=== PATIENT | female | born 1940 | race Caucasian/White ===

== ENCOUNTER → 2016-10-24 | Outpatient (CLI) | payer MEDICARE ==
[~2016-10-24] MED LIST: ASPIRIN81 M1; ATENOLOL50 MG PO; B12-METHYL1000 MCG; CIPRO500 MG PO; FISH OIL; FISH OIL 10001000 MG PO; FUROSEMIDE20 MG; HYDROCODONE BIT1 T11 PO; LEVOTHYROXIN0.112 MG; LOVASTATIN20 MG; MULTIVITAMIN FO1 CAP; NORVASC5 MG PO; PERSERVISION; PERSERVISION AREDS; Rocaltrol0.25 MCG; TRICOR145 MG; VITAMIN D1000 IU PO
== END | disposition home or self-care (01) ==
LOC: MAMMO 11:09
DX: Z12.31 Encounter for screening mammogram for malignant neoplasm of breast (principal)

== ENCOUNTER → 2016-11-26 | Outpatient (CLI) | payer MEDICARE | END | disposition home or self-care (01) | LOC: US 11:00 | DX: I65.23 Occlusion and stenosis of bilateral carotid arteries (principal) ==

== ENCOUNTER → 2017-01-15 | Outpatient (CLI) | payer MEDICARE | END | disposition home or self-care (01) | LOC: CARD 12:19 | DX: R07.89 Other chest pain (principal) ==

== ENCOUNTER → 2017-01-29 | Outpatient (CLI) | payer MEDICARE ==
[~2017-01-29] MED LIST changes: +CALCIUM 600 +1 EA10 PO; -LEVOTHYROXIN0.112 MG; +LEVOXYL100 MCG PO; +NORVASC10 MG PO; -NORVASC5 MG PO; -VITAMIN D1000 IU PO; +VITAMIN D5000 UNI1 PO
--- NOTE | ~2017-01-29 | ST ---
[place], [place] EXERCISE STRESS TEST REPORT NAME: LEXII CHRISTENSEN UNIT #: [id number] ROOM: DOCTOR: ZE ANDREWS [facility] BIRTHDATE: [birth year] DOS: LEXISCAN WITH CARDIOLITE The patient received Lexiscan 0.4 mg over 10 seconds. Heart rate is 87, no ischemic changes on EKG. No complications noted. Isotope was injected. Myocardial perfusion scan to follow. VI KUNZ MD CM:STRESS:EXERCISE STRESS TEST REPORT [id number] VI KUNZ MD [facility]
--- NOTE | 2017-01-29 12:30 | NUR ---
INFORMED CONSENT OBTAINED FOR LEXISCAN NUCLEAR STRESS TEST WITH DR. KUNZ. RESTING EKG PACED WITH A RESTING HR OF 67 WITH BP OF 128/72. LUNGS CLEAR WITH SPO2 OF 99% ON ROOM AIR. PT COMPLETED A 1:00 LEXISCAN PROTOCOL RECEIVING LEXISCAN 0.4 MG IV OVER 10 SECONDS. HAD NO CHEST PAIN OR ANY EKG CHANGES. EKG NSR WITH INCREASE IN HEART RATE. HAD A PEAK HR OF 92 WITH BP OF 128/62. LAST RECOVERY HR OF 86 WITH BP OF 136/70. AWAITING SCANNING IN STABLE CONDITION.
== END | disposition home or self-care (01) ==
LOC: CARD 00:35
DX: R07.89 Other chest pain (principal); R06.02 Shortness of breath; R53.81 Other malaise

== ENCOUNTER → 2017-10-01 | Outpatient (CLI) | payer MEDICARE | END | disposition home or self-care (01) | LOC: US 09:44 | DX: N28.1 Cyst of kidney, acquired (principal); N26.1 Atrophy of kidney (terminal); N18.4 Chronic kidney disease, stage 4 (severe) ==

== ENCOUNTER 2019-02-03 13:24 | Emergency (ER) | payer MEDICARE ==
[~2019-02-03] VITALS: Ht 170.1 cm; Wt 81.2 kg
--- NOTE | ~2019-02-03 | EKG ---
[place], [place] ELECTROCARDIOGRAM REPORT NAME: LEXII CHRISTENSEN UNIT #: [id number] ROOM: DOCTOR: EPIPHANY DRAFT REPORT BIRTHDATE: [birth year] [facility] Test Date: 2019-02-03 Test Time: 14:42:49 Pat Name: LEXII CHRISTENSEN Department: Room: Gender: F Instrument Setter: : 1940 Requested By: LUCIA ESQUEDA Order Number: [id number] Reading MD: Renzo Martell MD Measurements Intervals [place] Rate: 63 P: NH: 231 QRS: 5 QRSD: 90 T: -3 QT: 361 QTc: 370 Interpretive Statements Atrial-paced complexes Prolonged NH interval Abnormal R-wave progression, early transition Borderline T abnormalities, diffuse leads No previous ECG available for comparison Electronically Signed On 02-04-2019 15:47:42 PDT by Renzo Martell MD CM:EKGRPT:ELECTROCARDIOGRAM REPORT [id number] LUCIA REYNOSO DRAFT REPORT LUCIA BRINK
[2019-02-03 13:25] VITALS: BP 152/66
[2019-02-03 14:50] LABS: BASO % 0.3 % (0.0-1.0); EOS # 0.1 10*3/uL (0.0-0.4); EOS % 1.4 % (1.0-4.0); HEMOGLOBIN 11.9 g/dl (12.0-16.0); LYMPH # 1.5 10*3/uL (1.3-4.4); LYMPH % 16.8 % (27.0-41.0); MEAN CELL VOLUME 102.9 fl (81.0-99.0); MEAN CORPUSCULAR HGB CONC 33.1 g/dl (33.0-37.0); MEAN PLATELET VOLUME 10.1 fl (9.6-12.3); MONO % 11.3 % (3.0-9.0); NEUT # 6.3 10*3/uL (2.3-7.9); NEUT % 69.8 % (47.0-73.0); PLATELET COUNT AUTOMATED 207 10*3/uL (130-400); RED CELL DISTRI WIDTH 14.1 % (0-14.5); WHITE BLOOD COUNT 9.1 10*3/uL (4.8-10.8)
[2019-02-03 15:05] LABS: ALBUMIN 2.9 gm/dl (3.1-4.5); ALKALINE PHOSPHATASE 85 U/L (45-117); BUN 48 mg/dl (7-24); CHLORIDE 118 mmol/L (98-107); CPK 80 U/L (26-192); CREATININE 1.97 mg/dL (0.55-1.02); LIPASE 224 U/L (73-393); POTASSIUM 4.7 mmol/L (3.5-5.1); SGOT/AST 24 IU/L (3-35); SGPT/ALT 21 U/L (12-78); SODIUM 145 mmol/L (136-145); TOTAL PROTEIN 6.9 gm/dL (6.4-8.2)
[2019-02-03 15:10] LABS: ACT PARTIAL THROMBO TIME 24.3 SECONDS (20.0-32.1)
[2019-02-03 15:10] LABS: TROPONIN I < 0.015 ng/ml (<0.045)
[2019-02-03 16:17] LABS: BILIRUBIN NEGATIVE (NEGATIVE); BLOOD TRACE-INTACT (NEGATIVE); CLARITY SL CLOUDY (CLEAR); COLOR YELLOW (YELLOW); GLUCOSE NEGATIVE (NEGATIVE); KETONE NEGATIVE (NEGATIVE); LEUKO ESTERASE 2+ (NEGATIVE); NITRITE POSITIVE (NEGATIVE); PH 5.5 (5.0-9.0); SPECIFIC GRAVITY 1.015 (1.005-1.030); UROBILINOGEN 0.2 E.U./dl (0.2-1.0)
[2019-02-03 17:06] LABS: BACTERIA TRACE; EPITHELIAL CELLS 0-2
[2019-02-03] MEDS ORDERED: MACROBID100 M1 PO (17:37)
== END 2019-02-03 18:03 | disposition home or self-care (01) ==
LOC: ED 13:24
PROVIDERS: Physician Assistant
DX: S50.02XA Contusion of left elbow, initial encounter (principal); S00.83XA Contusion of other part of head, initial encounter; S00.12XA Contusion of left eyelid and periocular area, initial encounter; N39.0 Urinary tract infection, site not specified; I10 Essential (primary) hypertension; E11.9 Type 2 diabetes mellitus without complications; E78.00 Pure hypercholesterolemia, unspecified; M19.90 Unspecified osteoarthritis, unspecified site; Z86.718 Personal history of other venous thrombosis and embolism; Z87.442 Personal history of urinary calculi; Z88.2 Allergy status to sulfonamides; Z91.040 Latex allergy status; Z79.899 Other long term (current) drug therapy; Z79.82 Long term (current) use of aspirin; W01.0XXA Fall on same level from slipping, tripping and stumbling without subsequent striking against object, initial encounter; Y93.89 Activity, other specified; Y92.89 Other specified places as the place of occurrence of the external cause; Y99.8 Other external cause status

== ENCOUNTER 2019-03-19 14:56 | Inpatient (IN) | payer MEDICARE ==
[~2019-03-19] VITALS: Ht 170.2 cm; Wt 79.9 kg
--- NOTE | 2019-03-19 | NUR ---
PATIENT RESTING WITH EYES CLOSED. RESPIRATION EASY AND UNLABORED. BED ALARM ON AND CALL LIGHT WITHIN REACH. WILL MONITOR.
[~2019-03-19 14:56] MED LIST changes: -LOVASTATIN20 MG; +LOVASTATIN20 MG PO; +MACROBID100 M1 PO
[2019-03-19 15:33] LABS: BASO % 0.3 % (0.0-1.0); EOS # 0.1 10*3/uL (0.0-0.4); EOS % 1.6 % (1.0-4.0); HEMATOCRIT 34.2 % (37.0-47.0); HEMOGLOBIN 10.9 g/dl (12.0-16.0); LYMPH # 1.5 10*3/uL (1.3-4.4); LYMPH % 21.7 % (27.0-41.0); MEAN CELL VOLUME 104.6 fl (81.0-99.0); MEAN CORPUSCULAR HGB 33.3 pg (27.0-31.0); MEAN CORPUSCULAR HGB CONC 31.9 g/dl (33.0-37.0); MEAN PLATELET VOLUME 10.8 fl (9.6-12.3); MONO # 0.9 10*3/uL (0.1-1.0); MONO % 12.6 % (3.0-9.0); NEUT # 4.4 10*3/uL (2.3-7.9); NEUT % 63.4 % (47.0-73.0); PLATELET COUNT AUTOMATED 186 10*3/uL (130-400); RED BLOOD COUNT 3.27 10*6/uL (4.10-5.10); RED CELL DISTRI WIDTH 14.3 % (0-14.5)
[2019-03-19 15:48] LABS: CREATININE 1.7 mg/dL (0.55-1.02); POTASSIUM 4.5 mmol/L (3.5-5.1); TOTAL PROTEIN 6.5 gm/dL (6.4-8.2)
[2019-03-19 15:55] LABS: BILIRUBIN NEGATIVE (NEGATIVE); BLOOD 1+ (NEGATIVE); CLARITY SL CLOUDY (CLEAR); COLOR YELLOW (YELLOW); GLUCOSE NEGATIVE (NEGATIVE); KETONE NEGATIVE (NEGATIVE); LEUKO ESTERASE 2+ (NEGATIVE); NITRITE NEGATIVE (NEGATIVE); PH 5.5 (5.0-9.0); UROBILINOGEN 0.2 E.U./dl (0.2-1.0)
[2019-03-19 16:03] LABS: BACTERIA 4+; MUCOUS TRACE; RBC 0-2 rbc/hpf (0-2)
[2019-03-19 16:30] VITALS: BP 170/70
[2019-03-19 17:26] VITALS: BP 172/76
[2019-03-19 17:30] VITALS: BP 147/38
--- NOTE | 2019-03-19 17:30 | NUR ---
A 78, admitted to , under the services of JUDY Sears DO with a diagnosis of UTI. Chief complaint is Change in mental status. Patient arrived via stretcher from ER. Monitor applied. Initial assessment completed. Vital signs taken and recorded. JUDY SEARS DO notified of admission to the unit. Orders received. See assessment for past medical history, medications and allergies. Patient and/or family oriented to unit. [address] visitation policy reviewed. Clothing/patient valuable form completed. PADMA HELMS
--- NOTE | 2019-03-19 18:31 | NUR ---
Called patients home pharmacy for updated med list but they were closed.
[2019-03-19 20:00] VITALS: BP 136/36; BP 136/62
--- NOTE | 2019-03-19 20:00 | NUR ---
PATIENT AWAKE AND ALERT TO SELF AND PLACE. PATIENT HAS NO COMPLAINTS AT THIS TIME. LARGE HEMATOMA NOTED ON RIGHT UPPER ARM. BED ALARM ON AND CALL LIGHT IN REACH. WILL MONITOR.
[2019-03-20] VITALS: BP 131/66
--- NOTE | 2019-03-20 02:00 | NUR ---
PATIENT RESTING WITH EYES CLOSED. RESPIRATIONS EASY AND UNLABORED. BED ALARM ON AND CALL LIGHT WITHIN REACH.
--- NOTE | 2019-03-20 04:00 | NUR ---
PATIENT RESTING WITH EYES CLOSED. RESPIRATIONS EASY AND UNLABORED. BED ALARM ON AND CALL LIGHT WITHIN REACH. WILL MONITOR.
--- NOTE | 2019-03-20 04:12 | NUR ---
24 HR chart check completed.
[2019-03-20 07:06] LABS: BASO % 0.4 % (0.0-1.0); EOS # 0.1 10*3/uL (0.0-0.4); EOS % 1.1 % (1.0-4.0); HEMATOCRIT 30.4 % (37.0-47.0); LYMPH # 1.8 10*3/uL (1.3-4.4); LYMPH % 19.8 % (27.0-41.0); MEAN CORPUSCULAR HGB 33.6 pg (27.0-31.0); MEAN CORPUSCULAR HGB CONC 32.9 g/dl (33.0-37.0); MEAN PLATELET VOLUME 11.6 fl (9.6-12.3); MONO % 11.5 % (3.0-9.0); NEUT % 66.8 % (47.0-73.0); PLATELET COUNT AUTOMATED 174 10*3/uL (130-400); RED BLOOD COUNT 2.98 10*6/uL (4.10-5.10); RED CELL DISTRI WIDTH 14.3 % (0-14.5)
[2019-03-20 07:14] LABS: ALBUMIN 2.6 gm/dl (3.1-4.5); CREATININE 1.5 mg/dL (0.55-1.02); PHOSPHOROUS 2.9 mg/dL (2.5-4.9); POTASSIUM 4.2 mmol/L (3.5-5.1); TOTAL PROTEIN 5.5 gm/dL (6.4-8.2)
[2019-03-20 07:20] LABS: THYROID STIM HORMONE (HS) 1.06 uIU/ml (0.358-4.75)
[2019-03-20 08:00] VITALS: BP 157/58
--- NOTE | 2019-03-20 10:23 | NUR ---
Patients home pharmacy, [facility] is closed on Sundays. Open until 1500 on Thursday.
--- NOTE | 2019-03-20 10:27 | NUR ---
Called Maya in [facility] pharmacy because patient hinted that she went there, but pharmacist stated that patient had all prescriptions transferred to [facility].
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
[2019-03-20 12:00] VITALS: BP 131/56
[2019-03-20] MEDS ORDERED: LEVOTHYROXINE125 MCG PO (12:30)
[2019-03-20] MEDS ORDERED: COREG25 MG PO (12:33)
[2019-03-20] MEDS ORDERED: IMDUR SA60 M1 PO (12:37)
[2019-03-20] MEDS ORDERED: MEMANTINE HCL10 MG PO (12:38)
--- NOTE | 2019-03-20 12:40 | NUR ---
MED REC UPDATED VIA HOME LIST.
[2019-03-20 16:00] VITALS: BP 144/65
--- NOTE | 2019-03-20 19:06 | NUR ---
Shift chart check completed.
[2019-03-20 20:00] VITALS: BP 124/50
--- NOTE | 2019-03-20 20:00 | NUR ---
PATIENT AWAKE AND ALERT TO SELF AND PLACE BUT NOT TO TIME. PATIENT HAS NO COMPLAINTS AT THIS TIME. BED ALARM ON AND CALL LIGHT IN REACH. WILL MONITOR.
[2019-03-21] VITALS: BP 145/55
--- NOTE | 2019-03-21 | NUR ---
PATIENT RESTING WITH EYES CLOSED. RESPIRATION EASY AND UNLABORED. BED ALARM ON AND CALL LIGHT IN REACH. WILL MONITOR.
--- NOTE | 2019-03-21 02:00 | NUR ---
PATIENT RESTING WITH EYES CLOSED. RESPIRATION EASY AND UNLABORED. BED ALARM ON AND CALL LIGHT IN REACH. WILL MONITOR.
--- NOTE | 2019-03-21 04:00 | NUR ---
PATIENT RESTING WITH EYES CLOSED. RESPIRATION EASY AND UNLABORED. BED ALARM ON AND CALL LIGHT IN REACH. WILL MONITOR.
[2019-03-21 06:32] LABS: BASO % 0.4 % (0.0-1.0); EOS # 0.2 10*3/uL (0.0-0.4); EOS % 2.4 % (1.0-4.0); HEMATOCRIT 30.9 % (37.0-47.0); LYMPH # 1.9 10*3/uL (1.3-4.4); LYMPH % 24.7 % (27.0-41.0); MEAN CELL VOLUME 102.3 fl (81.0-99.0); MEAN CORPUSCULAR HGB 33.1 pg (27.0-31.0); MEAN CORPUSCULAR HGB CONC 32.4 g/dl (33.0-37.0); MEAN PLATELET VOLUME 11.3 fl (9.6-12.3); MONO # 0.9 10*3/uL (0.1-1.0); MONO % 12.4 % (3.0-9.0); NEUT # 4.5 10*3/uL (2.3-7.9); NEUT % 59.6 % (47.0-73.0); PLATELET COUNT AUTOMATED 178 10*3/uL (130-400); RED BLOOD COUNT 3.02 10*6/uL (4.10-5.10); RED CELL DISTRI WIDTH 14.5 % (0-14.5); WHITE BLOOD COUNT 7.5 10*3/uL (4.8-10.8)
[2019-03-21 07:01] LABS: CREATININE 1.56 mg/dL (0.55-1.02); POTASSIUM 4.3 mmol/L (3.5-5.1)
--- NOTE | 2019-03-21 07:30 | NUR ---
VITALS STABLE. ALERT AND ORIENTED TO PERSON AND PLACE, NOT TO TIME. MEHDI. CAP REFILL < 3 SECONDS. SKIN TURGOR NON-TENTING. HEART SOUNDS NORMAL. TRACE EDEMA IN BILATERAL LOWER EXTREMETIES. RESPIRATIONS EASY AND NON-LABORED. PO2 99% ON R/A. LUNGS CLEAR THROUGHOUT. ABDOMEN SOFT, NON-TENDER, NON-DISTENDED. BOWEL SOUNDS X 4. SKIN WARM, DRY AND INTACT. PAINLESS HEMATOMA TO RIGHT UPPER EXTREMITY. LEFT ANTECUBITAL IV SITE INTACT- NO REDNESS OR SWELLING. PT PLEASANT AND COOPERATIVE. NO COMPLAINTS AT THIS TIME. WILL CONTINUE TO ASSESS. KASSANDRA ROSARIO [facility] [place].
[2019-03-21 08:00] VITALS: BP 138/78
--- NOTE | 2019-03-21 08:00 | NUR ---
PT AWAKE, ALERT, PLEASANT. SITTING UP IN CHAIR EATING BREAKFAST. LUNGS CLEAR T/O. NO EDEMA NOTED. DENIES ANY PAIN. CALL LIGHT WITHIN REACH AND BODY ALARM PRESENT TO CHAIR.
--- NOTE | 2019-03-21 09:55 | NUR ---
PT SITTING IN CHAIR LOOKING OUT WINDOW. RESPIRATIONS EASY AND NON-LABORED. CALL LIGHT IN REACH. NO COMPLAINTS AT THIS TIME. WILL CONTINUE TO ASSESS. KASSANDRA CARROLLCC
--- NOTE | 2019-03-21 10:40 | NUR ---
Occupational therapy orders received and OT evaluation and POC completed in full on floor five. Patient precautions include fall risk, ww use, minimal confusion, weakness, and R UE hematoma. Per OT eval, OT recommends SNF. If refused, home with SN, OT, and PT. Patient would benefit from continued OT treatment to maximize independence and safety with ADLs and functional mobility. Patient complexity is low, [id number]. Thank you for the referral. Irene Small, OTR/L
[2019-03-21 12:00] VITALS: BP 128/60
--- NOTE | 2019-03-21 12:05 | NUR ---
PHYSICAL THERAPY Mechelle completed moderate complexity level 57362 recomend SNF at discharge PT to work on transfers, abm with AD, strengthening, balance and safety. Full report to follow Sandra Ventura PT
--- NOTE | 2019-03-21 12:46 | NUR ---
PT AWAKE, ALERT AND ORIENTED. SITTING IN CHAIR EATING LUNCH. PT PLEASANT. RESPIRATIONS EASY AND NON-LABORED. NO COMPLAINTS AT THIS TIME. WILL CONTINUE TO ASSESS. KASSANDRA ROSARIO [facility].
--- NOTE | 2019-03-21 13:51 | NUR ---
Case Management was asked to wait to talk to the patient until her friend had the chance. BEAUTY CULTURE TEACHER went to speak with the patient, patient stated that her friend Guzman has not been in yet. BEAUTY CULTURE TEACHER confirmed this with SHAUNA Lerner. Will await til friend arrives to talk to the patient about SNF. Straightening Roll Operator Paula is aware. -JOSHUA Palmer
[2019-03-21 16:00] VITALS: BP 136/61
[2019-03-21 20:00] VITALS: BP 128/50
[2019-03-22] VITALS: BP 145/63
--- NOTE | 2019-03-22 | NUR ---
PATIENT RESTING WITH EYES CLOSED. RESPIRATIONS EASY AND UNLABORED. BED ALARM ON AND CALL LIGHT IN REACH.
--- NOTE | 2019-03-22 02:00 | NUR ---
PATIENT RESTING WITH EYES CLOSED. RESPIRATIONS EASY AND UNLABORED. BED ALARM ON AND CALL LIGHTIN REACH. WILL MONITOR.
--- NOTE | 2019-03-22 04:00 | NUR ---
PATIENT RESTING WITH EYES CLOSED. RESPIRATIONS EASY AND UNLABORED. BED ALARM ON AND CALL LIGHT IN REACH. WILL MONITOR.
[2019-03-22 06:45] LABS: BASO # 0.1 10*3/uL (0.0-0.1); BASO % 0.9 % (0.0-1.0); EOS # 0.2 10*3/uL (0.0-0.4); EOS % 3.2 % (1.0-4.0); HEMATOCRIT 30.9 % (37.0-47.0); LYMPH # 1.7 10*3/uL (1.3-4.4); LYMPH % 24.6 % (27.0-41.0); MEAN CELL VOLUME 102.3 fl (81.0-99.0); MEAN CORPUSCULAR HGB 33.1 pg (27.0-31.0); MEAN CORPUSCULAR HGB CONC 32.4 g/dl (33.0-37.0); MEAN PLATELET VOLUME 11.6 fl (9.6-12.3); MONO # 0.8 10*3/uL (0.1-1.0); MONO % 12.3 % (3.0-9.0); NEUT % 58.4 % (47.0-73.0); PLATELET COUNT AUTOMATED 177 10*3/uL (130-400); RED BLOOD COUNT 3.02 10*6/uL (4.10-5.10); RED CELL DISTRI WIDTH 14.4 % (0-14.5); WHITE BLOOD COUNT 6.8 10*3/uL (4.8-10.8)
[2019-03-22 06:55] LABS: CREATININE 1.52 mg/dL (0.55-1.02); POTASSIUM 4.4 mmol/L (3.5-5.1)
[2019-03-22 08:00] VITALS: BP 129/51
--- NOTE | 2019-03-22 09:00 | NUR ---
COMMUNITY ARTS WORKER SPOKE WITH BALTA PT FRIEND ABOUT DISCHARGE NEEDS. THEY ARE AGREEABLE TO HOME HEALTH. THEY ARE REQUESTING [facility]. WILL SEND REFERRAL.
--- NOTE | 2019-03-22 10:43 | NUR ---
JOSHUA spoke with the patients RADHA Hinds on the phone and in person this morning. Guzman stated that he has known the patient for approximately 27 years. He stated that the patient has no family. Himself, and sons are all that the patient has. He stated that he assist the patient with ADLs and IADLs. He does obtain groceries for the patient, however the patient does not cook. Guzman stated that he does provided 2-3 meals a day for the patient. Guzman stated in the past the he has tried to get meals on wheels for the patient but the patient would not let the people in her home to do an assessment. The patient has expressed to him in the past that she does not want to go to detention, even for rehab. The patient is agreeable to [facility]. The patient does have a life alert button that she carries with her at all times. Guzman stated the patient is not up to date on current events as she does not watch television or reads the news paper. The patient only reads books. Guzman stated that the patient does tend to be a loner as she has been since he as known her. Patient and POA are agreeable to [facility]. JOSHUA notified Eating Disorder Psychologist Paula. -JOSHUA Palmer
--- NOTE | 2019-03-22 10:50 | NUR ---
Founding Partner in to talk to patient. Patient states lives at HOME with ALONE. There are FEW steps in the home. Physician: SUZETTE Pharmacy: [facility] health services: NONE Patient's level of ADLs: MODERATE ASSIST Patient has working utilities: YES DME: NONE Follow-up physician's appointment after d/c: WILL BE MADE BY HOSPITALIST NURSE DIRECTOR ON DISCHARGE Does patient want to access PORTAL?: NO Discharge plan PT LIVES AT HOME ALONE WITH A FRIEND HELPING HER OUT. PER FRIEND BALTA HE OR SOMEONE IN HIS FAMILY LOOKING IN ON HER AT LEAST 2 TIMES A DAY. HE ALSO BRINGS HER MEALS 2 TIMES A DAY. PT WANTS TO RETURN HOME ON DISCHAGE. WILL TALK TO BALTA ABOUT NEEDS. WILL CONTINUE TO FOLLOW. WILL HAVE A RIDE HOME. . RICK DICKEY
--- NOTE | 2019-03-22 10:50 | NUR ---
OT NOTE Pt was seen this A.M. 1:1 for 16 minute OT session. Upon arrival pt was supine in bed. Pt identified by name and and had no complaints at this time. Pt reported that she felt "great." Pt transferred supine to sit EOB with SBA. While sitting EOB pt donned B socks with SBA. Sit to stand completed from bed level with CGA and use of w/w for UE support. Functional mobility was then completed to the bathroom with CGA for safety. There she transferred on/off standard commode with SBA and use of grab bar. Clothing management completed with SBA and toilet hygiene completed with supervision while seated. She then stood sink side while washing her hands with CGA for safety. Functional mobility was then completed back to the EOB where she transferred sit to supine with SBA. There she was left with call light in hand, tray table in place, and bed alarm activated for safety. Continue with rec D/C plan to SNF. NASIM Villanueva/Naveed
[2019-03-22 12:00] VITALS: BP 129/55
--- NOTE | 2019-03-22 13:04 | NUR ---
Discharge instructions reviewed with patient/family. Patient receptive and verbalizes understanding. Follow-up care arranged. Written instructions given to patient/family. [place] DISCONTINUED. PATIENT TAKEN OFF FLOOR VIA WHEELCHAIR; PICKED UP BY FRIEND NATHANIEL VARELA
--- NOTE | 2019-03-22 13:36 | NUR ---
PHYSICAL THERAPY Patien presented to therapy in supine with head of bed elevated and report of no pain or other complaints. Patient gives informed consent for treatment. Patient was identified by name and on wristband. Patient transferred supine to sitting at EOB transfer with SBA. Patien sit to stand from EOB with SBA. Patient performed ambulation with Wh Walker and CGA X 1 for 60' X 2 with no LOB or other difficulty. Patient transferred back to supine in bed with SBA. Patient was left in supine in bed head of bed elevated, call light within reach and bed alarm activated. Patient was 1:1 with this SPECIAL WARFARE BOAT OPERATOR for 15 minutes total. TOM DUBON SPECIAL WARFARE BOAT OPERATOR
--- NOTE | 2019-03-22 14:20 | NUR ---
REFERRAL SENT TO [facility].
--- NOTE | 2019-03-23 07:41 | NUR ---
PHYSICAL THERAPY CO-SIGN I approve of the Physical Therapy notes written above. Sandra Ventura PT
--- NOTE | 2019-03-23 15:27 | NUR ---
OCCUPATIONAL THERAPY CO-SIGN I approve of the Occupational Therapy notes written above. SALIMA ESTRADA OTR/Naveed
== END 2019-03-22 12:55 | disposition home or self-care (01) | DRG 640 ==
LOC: ED 14:56 → EDHOLD 16:59 → 5E 16:59
PROVIDERS: Emergency Medicine; Internal Medicine; Student in an Organized Health Care Education/Training Program; ADMIT Internal Medicine
DX: E86.0 Dehydration (principal); G93.41 Metabolic encephalopathy; E44.0 Moderate protein-calorie malnutrition; N18.4 Chronic kidney disease, stage 4 (severe); E87.8 Other disorders of electrolyte and fluid balance, not elsewhere classified; R73.9 Hyperglycemia, unspecified; I12.9 Hypertensive chronic kidney disease with stage 1 through stage 4 chronic kidney disease, or unspecified chronic kidney disease; E55.9 Vitamin D deficiency, unspecified; E66.3 Overweight; D53.9 Nutritional anemia, unspecified; M19.90 Unspecified osteoarthritis, unspecified site; R73.03 Prediabetes; E78.5 Hyperlipidemia, unspecified; E03.9 Hypothyroidism, unspecified; S40.021A Contusion of right upper arm, initial encounter; W01.0XXA Fall on same level from slipping, tripping and stumbling without subsequent striking against object, initial encounter; Y93.89 Activity, other specified; Y92.511 Restaurant or cafe as the place of occurrence of the external cause; Y99.8 Other external cause status; Z87.440 Personal history of urinary (tract) infections; Z88.2 Allergy status to sulfonamides; Z91.040 Latex allergy status; Z90.710 Acquired absence of both cervix and uterus; Z98.51 Tubal ligation status; Z98.42 Cataract extraction status, left eye; Z98.41 Cataract extraction status, right eye; Z82.49 Family history of ischemic heart disease and other diseases of the circulatory system; Z83.3 Family history of diabetes mellitus; Z86.718 Personal history of other venous thrombosis and embolism; Z87.891 Personal history of nicotine dependence; Z79.899 Other long term (current) drug therapy; Z79.82 Long term (current) use of aspirin; Z68.27 Body mass index [BMI] 27.0-27.9, adult

== ENCOUNTER → 2019-03-31 | Outpatient (CLI) | payer MEDICARE ==
[~2019-03-31] MED LIST changes: +COREG25 MG PO; +IMDUR SA60 M1 PO; +LEVOTHYROXINE125 MCG PO; +MEMANTINE HCL10 MG PO
== END | disposition home or self-care (01) ==
LOC: US 13:45
DX: I65.23 Occlusion and stenosis of bilateral carotid arteries (principal)

== ENCOUNTER → 2019-05-11 | Outpatient (CLI) | payer MEDICARE ==
[2019-05-11 12:02] LABS: ALBUMIN 3.2 gm/dl (3.1-4.5); ALKALINE PHOSPHATASE 98 U/L (45-117); BILIRUBIN, DIRECT 0.1 mg/dL (0.0-0.2); SGOT/AST 15 IU/L (3-35); SGPT/ALT 18 U/L (12-78)
== END ==
LOC: LAB 11:00
PROVIDERS: Psychiatry & Neurology Neurology
DX: G30.1 Alzheimer's disease with late onset (principal)

== ENCOUNTER 2019-12-22 12:46 | Inpatient (IN) | payer MEDICARE ==
[~2019-12-22] VITALS: Ht 170.2 cm; Wt 71.3 kg
[2019-12-22 12:56] VITALS: BP 108/55
[2019-12-22 13:55] VITALS: BP 154/67
[2019-12-22 14:38] LABS: BASO % 0.3 % (0.0-1.0); EOS % 0.3 % (1.0-4.0); HEMATOCRIT 35.9 % (37.0-47.0); LYMPH # 0.9 10*3/uL (1.3-4.4); LYMPH % 7.8 % (27.0-41.0); MEAN CELL VOLUME 101.4 fl (81.0-99.0); MEAN CORPUSCULAR HGB 32.8 pg (27.0-31.0); MEAN CORPUSCULAR HGB CONC 32.3 g/dl (33.0-37.0); MEAN PLATELET VOLUME 13.6 fl (9.6-12.3); MONO # 0.8 10*3/uL (0.1-1.0); MONO % 6.8 % (3.0-9.0); NEUT # 9.3 10*3/uL (2.3-7.9); NEUT % 84.1 % (47.0-73.0); PLATELET COUNT AUTOMATED 129 10*3/uL (130-400); RED BLOOD COUNT 3.54 10*6/uL (4.10-5.10); RED CELL DISTRI WIDTH 14.3 % (0-14.5)
[2019-12-22 14:48] LABS: ACT PARTIAL THROMBO TIME 26.2 SECONDS (20.0-32.1); INTERNATIONAL NORM RATIO 1.1 (2.0-3.5)
[2019-12-22 14:52] LABS: ALBUMIN 2.8 gm/dl (3.1-4.5); ALKALINE PHOSPHATASE 96 U/L (45-117); BUN 31 mg/dl (7-24); CHLORIDE 114 mmol/L (98-107); CREATININE 2.12 mg/dL (0.55-1.02); LIPASE 285 U/L (73-393); POTASSIUM 3.9 mmol/L (3.5-5.1); SGOT/AST 18 IU/L (3-35); SGPT/ALT 14 U/L (12-78); SODIUM 142 mmol/L (136-145); TOTAL PROTEIN 6.7 gm/dL (6.4-8.2)
[2019-12-22 14:55] LABS: TROPONIN I < 0.015 ng/ml (<0.045)
[2019-12-22 15:27] LABS: BILIRUBIN NEGATIVE; BLOOD TRACE-INTACT (NEGATIVE); CLARITY TURBID (CLEAR); COLOR YELLOW (YELLOW); GLUCOSE NEGATIVE; KETONE TRACE; SPECIFIC GRAVITY 1.015 (1.001-1.030)
[2019-12-22 15:28] LABS: LEUKO ESTERASE 3+ (NEGATIVE); NITRITE NEGATIVE (NEGATIVE)
[2019-12-22 15:47] LABS: BACTERIA 4+; WBC 51-100 wbc/hpf (0-5)
[2019-12-22 16:00] VITALS: BP 154/67
[2019-12-22] MEDS ORDERED: FISH OIL 1,0001 EAC1 PO (16:40)
[2019-12-22 20:00] VITALS: BP 123/71
[2019-12-23] VITALS: BP 117/63
[2019-12-23 06:18] LABS: BASO % 0.2 % (0.0-1.0); EOS # 0.1 10*3/uL (0.0-0.4); LYMPH # 1.5 10*3/uL (1.3-4.4); LYMPH % 18.6 % (27.0-41.0); MEAN CELL VOLUME 101.2 fl (81.0-99.0); MEAN CORPUSCULAR HGB 32.8 pg (27.0-31.0); MEAN CORPUSCULAR HGB CONC 32.4 g/dl (33.0-37.0); MONO % 12.4 % (3.0-9.0); NEUT # 5.4 10*3/uL (2.3-7.9); NEUT % 67.2 % (47.0-73.0); PLATELET COUNT AUTOMATED 117 10*3/uL (130-400); RED BLOOD COUNT 3.26 10*6/uL (4.10-5.10); RED CELL DISTRI WIDTH 14.5 % (0-14.5)
[2019-12-23 06:44] LABS: ALBUMIN 2.4 gm/dl (3.1-4.5); CREATININE 1.82 mg/dL (0.55-1.02); POTASSIUM 3.5 mmol/L (3.5-5.1); TOTAL PROTEIN 5.8 gm/dL (6.4-8.2)
[2019-12-23 06:50] LABS: FREE T4 1.17 ng/dl (0.76-1.46); THYROID STIM HORMONE (HS) 0.218 uIU/ml (0.358-4.75)
[2019-12-23 07:55] LABS: VITAMIN D, 25-HYDROXY 91.3 ng/mL (30-100)
[2019-12-23 12:00] VITALS: BP 115/64
[2019-12-23 16:00] VITALS: BP 111/64
[2019-12-23 20:00] VITALS: BP 118/65
[2019-12-24] VITALS: BP 142/59
[2019-12-24 06:20] LABS: CREATININE 1.65 mg/dL (0.55-1.02); POTASSIUM 3.3 mmol/L (3.5-5.1)
[2019-12-24 08:00] VITALS: BP 154/71
[2019-12-24] MEDS ORDERED: CIPRO500 MG PO (11:48)
[2019-12-24 12:00] VITALS: BP 125/60
== END 2019-12-24 14:42 | disposition home or self-care (01) | DRG 682 ==
LOC: ED 12:46 → EDHOLD 15:21 → 4E 15:21
PROVIDERS: Emergency Medicine; Internal Medicine; ADMIT Internal Medicine; ATTEND Internal Medicine
DX: N17.0 Acute kidney failure with tubular necrosis (principal); G93.41 Metabolic encephalopathy; N39.0 Urinary tract infection, site not specified; E44.0 Moderate protein-calorie malnutrition; E87.2 Acidosis; E86.0 Dehydration; N18.4 Chronic kidney disease, stage 4 (severe); E87.8 Other disorders of electrolyte and fluid balance, not elsewhere classified; I12.9 Hypertensive chronic kidney disease with stage 1 through stage 4 chronic kidney disease, or unspecified chronic kidney disease; E88.09 Other disorders of plasma-protein metabolism, not elsewhere classified; D53.9 Nutritional anemia, unspecified; M19.90 Unspecified osteoarthritis, unspecified site; E55.9 Vitamin D deficiency, unspecified; E03.9 Hypothyroidism, unspecified; Z88.2 Allergy status to sulfonamides; Z88.8 Allergy status to other drugs, medicaments and biological substances; Z98.42 Cataract extraction status, left eye; Z98.41 Cataract extraction status, right eye; Z90.710 Acquired absence of both cervix and uterus; Z87.891 Personal history of nicotine dependence; Z68.24 Body mass index [BMI] 24.0-24.9, adult; Z79.899 Other long term (current) drug therapy

== ENCOUNTER 2020-03-17 11:49 | Inpatient (IN) | payer MEDICARE ==
[~2020-03-17] VITALS: Ht 170.2 cm; Wt 74.0 kg
[~2020-03-17 11:49] MED LIST changes: +FISH OIL 1,0001 EAC1 PO; -FUROSEMIDE20 MG; -IMDUR SA60 M1 PO; +ISOSORBIDE MONO60 MG PO; +LASIX20 MG PO
[2020-03-17 11:57] VITALS: BP 131/72
[2020-03-17 12:25] LABS: BASO % 0.4 % (0.0-1.0); EOS # 0.1 10*3/uL (0.0-0.4); EOS % 0.9 % (1.0-4.0); HEMATOCRIT 34.3 % (37.0-47.0); LYMPH # 1.7 10*3/uL (1.3-4.4); LYMPH % 25.4 % (27.0-41.0); MEAN CELL VOLUME 100.3 fl (81.0-99.0); MEAN CORPUSCULAR HGB 32.7 pg (27.0-31.0); MEAN CORPUSCULAR HGB CONC 32.7 g/dl (33.0-37.0); MEAN PLATELET VOLUME 11.9 fl (9.6-12.3); MONO # 0.7 10*3/uL (0.1-1.0); MONO % 10.3 % (3.0-9.0); NEUT # 4.2 10*3/uL (2.3-7.9); NEUT % 62.4 % (47.0-73.0); PLATELET COUNT AUTOMATED 169 10*3/uL (130-400); RED BLOOD COUNT 3.42 10*6/uL (4.10-5.10); WHITE BLOOD COUNT 6.7 10*3/uL (4.8-10.8)
[2020-03-17 12:45] LABS: ALBUMIN 2.5 gm/dl (3.1-4.5); ALKALINE PHOSPHATASE 79 U/L (45-117); BUN 38 mg/dl (7-24); CHLORIDE 105 mmol/L (98-107); CREATININE 2.61 mg/dL (0.55-1.02); POTASSIUM 4.7 mmol/L (3.5-5.1); SGOT/AST 15 IU/L (3-35); SGPT/ALT 21 U/L (12-78); SODIUM 138 mmol/L (136-145); TOTAL PROTEIN 6.3 gm/dL (6.4-8.2)
[2020-03-17 12:46] LABS: TROPONIN I < 0.015 ng/ml (<0.045)
[2020-03-17 13:39] LABS: BILIRUBIN Negative (Negative); BLOOD Negative (Negative); CLARITY Clear (Clear); COLOR Yellow (Yellow); GLUCOSE Negative (Negative); KETONE Negative (Negative); LEUKO ESTERASE Negative (Negative); NITRITE Negative (Negative); SPECIFIC GRAVITY <= 1.005 (1.001-1.030); UROBILINOGEN 0.2 E.U./dl (0.0-1.0)
[2020-03-17 13:53] LABS: BACTERIA TRACE; EPITHELIAL CELLS 0-2; RBC 0-2 rbc/hpf (0-2); WBC 0-2 wbc/hpf (0-5)
--- NOTE | 2020-03-17 14:04 | NUR ---
PT REMAINS W/O ACUTE DISTRESS NOTED WITH SAFETY PRECAUTIONS INTACT AND CALL LIGHT WITHIN REACH.
[2020-03-17 14:24] VITALS: BP 128/56
--- NOTE | 2020-03-17 15:05 | NUR ---
PT'S POA BALTA CALLED FOR AN UPDATE AND OF HIS NOTIFICATION OF PT'S ADMITTANCE.
[2020-03-17] MEDS ORDERED: CALCIUM + D3 E1 EACH PO (15:47)
[2020-03-17] MEDS ORDERED: CITRACAL + D E1 EACH PO (15:48)
[2020-03-17] MEDS ORDERED: DONEPEZIL HCL10 MG PO (15:49)
[2020-03-17] MEDS ORDERED: FAMOTIDINE20 M1 PO (15:51)
[2020-03-17] MEDS ORDERED: METHYLCOBALAMIN PO (15:55)
[2020-03-17] MEDS ORDERED: MULTIVITAMINS1 EAC5 PO (15:55)
[2020-03-17] MEDS ORDERED: PRESERVISION A1 EAC1 PO (15:56)
[2020-03-17] MEDS ORDERED: PROVENTIL HFA6.7 GM INH (15:58)
--- NOTE | 2020-03-17 15:59 | NUR ---
MULTIPLE ECCHYMOTIC AREAS NOTED ON HER ARMS AND HAND.
[2020-03-17] MEDS ORDERED: CALCIUM/VITAMIN D3 PO (16:00)
[2020-03-17 16:15] VITALS: BP 132/86
--- NOTE | 2020-03-17 16:15 | NUR ---
Time: 1614 A 79 year old female admitted to 5E under services of AMANDA BOSWELL DO. Pt. arrived via bed from ER. Chief complaint: fall, acute renal failure. SHERRILL LEWIS
--- NOTE | 2020-03-17 19:30 | NUR ---
PT RESTING IN BED. RESPIRATIONS EASY AND UNLABORED ON ROOM AIR. NO S/S OF DISTRESS NOTED. CALL LIGHT IN REACH.
[2020-03-17 20:00] VITALS: BP 151/65
--- NOTE | 2020-03-17 21:39 | NUR ---
IV started right forearm with #22 protective cath after 2 attempts. Site prepped with Chloroprep. Sterile dressing applied. Patient tolerated procedure well. IV infusing at 100 cc/hr. RAMYA CHAVEZ
[2020-03-18] VITALS: BP 116/67
--- NOTE | 2020-03-18 05:01 | NUR ---
PT UP TO BATHROOM WITH ASSISTANCE. GAIT STEADY. PT DENIES PAIN OR DISTRESS. PT ASSISTED BACK TO BED. IV FLUIDS INFUSING PER ORDERS. RESPIRATIONS UNLABORED. BED ALARM IN TACT. CALL LIGHT IN REACH.
[2020-03-18 06:33] LABS: BASO % 0.4 % (0.0-1.0); EOS # 0.1 10*3/uL (0.0-0.4); EOS % 0.8 % (1.0-4.0); HEMATOCRIT 32.8 % (37.0-47.0); LYMPH # 1.6 10*3/uL (1.3-4.4); LYMPH % 20.7 % (27.0-41.0); MEAN CELL VOLUME 100.9 fl (81.0-99.0); MEAN CORPUSCULAR HGB 33.2 pg (27.0-31.0); MEAN CORPUSCULAR HGB CONC 32.9 g/dl (33.0-37.0); MEAN PLATELET VOLUME 11.6 fl (9.6-12.3); MONO # 0.9 10*3/uL (0.1-1.0); NEUT # 5.2 10*3/uL (2.3-7.9); NEUT % 66.5 % (47.0-73.0); PLATELET COUNT AUTOMATED 146 10*3/uL (130-400); RED BLOOD COUNT 3.25 10*6/uL (4.10-5.10); RED CELL DISTRI WIDTH 14.9 % (0-14.5); WHITE BLOOD COUNT 7.8 10*3/uL (4.8-10.8)
[2020-03-18 06:49] LABS: ALBUMIN 2.2 gm/dl (3.1-4.5); CREATININE 2.12 mg/dL (0.55-1.02); POTASSIUM 4.4 mmol/L (3.5-5.1); TOTAL PROTEIN 5.9 gm/dL (6.4-8.2)
[2020-03-18 08:00] VITALS: BP 112/52
--- NOTE | 2020-03-18 09:01 | NUR ---
PT SITTING UP EATING BREAKFAST. NO DISTRESS NOTED. WILL MONITOR
--- NOTE | 2020-03-18 11:22 | NUR ---
PT IV SITE INFILTRATED UNABLE TO GET ANOTHER SITE AFTER TRYING 3X DR PEÑA NOTIFIED
[2020-03-18 12:00] VITALS: BP 117/52
[2020-03-18 16:00] VITALS: BP 105/60
--- NOTE | 2020-03-18 19:30 | NUR ---
PT ASLEEP IN BED. NO S/S OF DISTRESS NOTED. WILL MONITOR. CALL LIGHT IN REACH.
[2020-03-18 20:00] VITALS: BP 103/40
[2020-03-19] VITALS: BP 102/51
--- NOTE | 2020-03-19 02:07 | NUR ---
PT ASLEEP IN BED, EASILY AROUSABLE. DENIES ANY NEEDS. WILL MONITOR. CALL LIGHT IN REACH.
[2020-03-19 06:34] LABS: BASO % 0.6 % (0.0-1.0); EOS # 0.1 10*3/uL (0.0-0.4); EOS % 1.5 % (1.0-4.0); HEMATOCRIT 33.8 % (37.0-47.0); LYMPH # 1.9 10*3/uL (1.3-4.4); LYMPH % 26.3 % (27.0-41.0); MEAN CELL VOLUME 100.9 fl (81.0-99.0); MEAN CORPUSCULAR HGB 32.8 pg (27.0-31.0); MEAN CORPUSCULAR HGB CONC 32.5 g/dl (33.0-37.0); MEAN PLATELET VOLUME 12.3 fl (9.6-12.3); MONO # 0.9 10*3/uL (0.1-1.0); NEUT # 4.3 10*3/uL (2.3-7.9); PLATELET COUNT AUTOMATED 151 10*3/uL (130-400); RED BLOOD COUNT 3.35 10*6/uL (4.10-5.10); RED CELL DISTRI WIDTH 15.2 % (0-14.5); WHITE BLOOD COUNT 7.2 10*3/uL (4.8-10.8)
[2020-03-19 06:42] LABS: CREATININE 1.8 mg/dL (0.55-1.02); POTASSIUM 4.5 mmol/L (3.5-5.1)
--- NOTE | 2020-03-19 07:44 | NUR ---
PT RESTING IN BED. NO DISTRESS NOTED. WILL MONITOR
[2020-03-19 08:00] VITALS: BP 140/39
--- NOTE | 2020-03-19 08:16 | NUR ---
OT NOTE Occupational therapy order and nursing screen received. Will follow up with the patient for completion of an OT eval. Thank you. Irene Small, OTR/L
--- NOTE | 2020-03-19 09:15 | NUR ---
Occupational Therapy evaluation completed on FIVE with full evaluation to follow. Recommend occupational therapy per plan of care and SNF upon discharge. Thank you for this referral. Irene Small OTR/L
--- NOTE | 2020-03-19 09:17 | NUR ---
PHYSICAL THERAPY Physical Therapy evaluation completed on 5E with full evaluation to follow. Low complexity per chart review and evaluation, [id number]. Recommend physical therapy per plan of care and SNF upon discharge. Thank you for this referral. Mona Pereyra,PT,DPT
--- NOTE | 2020-03-19 11:17 | NUR ---
PHYSICAL THERAPY Nursing screen received, PT order received. PT evaluation complete. Recommend SNF at discharge. Thank you. Mona Pereyra,PT,DPT
[2020-03-19 12:00] VITALS: BP 136/40
--- NOTE | 2020-03-19 12:12 | NUR ---
NICK in to see pt. Pt is pleasantly confused. She states that she does not have a medical POA but when asked if she makes her own decisions, pt stated, "no" and laughed. Attempted to reach pt's contact Mayelin Mazariegos but he did not answer the phone. Spoke to Patricia, liaison for [facility] who states that pt moved there in 12/24. She tested positive for COVID on 03/03/20 and since then has had a change in mental status and new incontinence. Discussed the need for SNF. Referral faxed to [facility] for [facility]. Will also continue to reach Mayelin Mazariegos for additional pt information.
[2020-03-19 16:03] VITALS: BP 109/48
[2020-03-19 20:00] VITALS: BP 124/42
[2020-03-20] VITALS: BP 114/41
--- NOTE | 2020-03-20 07:50 | NUR ---
OT NOTE Pt was seen this A.M. 1:1 for 25 minute OT session. Upon arrival pt was supine in bed. Pt was A&O X 3 (name, , and place). Pt transferred supine to sit EOB with SBA. While sitting EOB pt donned B socks with SBA. Sit to stand completed from EOB with CGA and use of w/w for UE support. Challenged pt's static standing tolerance needed for increased I and enhanced endurance. Pt was able to tolerate aprox 5 minutes at a time before sitting due to fatigue. Functional mobility completed to the bathroom with CGA and use of w/w. There she transferred on/off standard commode with CGA and use of grab bar for UE support. She then stood sink side while washing her hands and face with CGA. Functional mobility completed back to the recliner with CGA and use of w/w. While seated in the recliner pt completed BUE towel exercises over all planes for 1 X 10 with min resistance to increase and restore maximum functional strength. Challenged pt's dynamic standing balance while weight shifting, crossing midline, and reaching over all planes. Pt was able to maintain F- standing balance requiring Sinan/UE support. Throughout entire session pt would respond to all questions/conversation with "no" and then laugh however would then proceed with task. Pt was left sitting upright in the recliner with call light in hand, tray table in place, and body alarm activated for safety. Continue with rec D/C plan to SNF. AHSAN Villanueva
[2020-03-20 08:00] VITALS: BP 132/60
--- NOTE | 2020-03-20 08:04 | NUR ---
pt resting in bed. no distress noted. will monitor
--- NOTE | 2020-03-20 08:20 | NUR ---
PHYSICAL THERAPY Patient presented to therapy in supine in bed with head of bed elevated and bed alarm on. Patient reports no pain or other complaints. Patient gives informed consent for treatment. Patient was identified by name and on wristband. Patient performed supine > sit on EOB with SBA. Patient sat on EOB with SBA. Patient completed STS from EOB with SBA - CGA. Patient ambulated with Wh Walker and CGA - SBA for 60' x 2 with one seated rest break in low chair. Patient STS < > low chair with SBA. Patient performed sitting bilateral LE THER EX 2 x 10 reps each in all planes of movement for strengthening the LEs in order to improve patient's functional mobility. Patient completed LAQs, marches and heel/toe raises x 10 reps each. Patient was left in sitting in bedside chair with call light within reach and chair alarm tested and attached to patient. Patient was 1:1 with this SIGN LANGUAGE TRANSLATOR for 20 minutes total. TOM DUBON SIGN LANGUAGE TRANSLATOR
--- NOTE | 2020-03-20 10:45 | NUR ---
Lengthy conversation with pt's DPOAHC Guzman Mazariegos. Discussed discharge plan. Guzman is agreeable to SNF at [facility] for pt. Guzman stated that it has been so hard to not see pt. He shared that pt does not like the telephone and chooses to not use one. Offered to try FaceTime with Guzman and pt. Will attempt this at 11:00.
--- NOTE | 2020-03-20 10:47 | NUR ---
Pt has been accepted to [facility]. [place] [facility]. Await determination.
--- NOTE | 2020-03-20 11:19 | NUR ---
Using [employer], assisted pt in speaking with pt's DPOAHC Guzman Mazariegos. Guzman reminded pt that he has not been able to visit her due to the pandemic. Guzman also spoke to pt about the need for SNF and that pt will be discharging to [facility]. Pt was pleasantly confused throughout conversation.
[2020-03-20 12:00] VITALS: BP 127/61
[2020-03-20 16:00] VITALS: BP 110/46
[2020-03-20 20:00] VITALS: BP 106/46
[2020-03-21] VITALS: BP 116/49
--- NOTE | 2020-03-21 04:00 | NUR ---
PATIENT SLEEPING. NO SIGNS OF DISTRESS. WILL CONTINUE TO MONITOR.
--- NOTE | 2020-03-21 07:45 | NUR ---
OT NOTE Pt was seen this A.M. 1:1 for 25 minute OT session. Upon arrival pt was supine in bed. Pt identified by name and and had no complaints at this time. Pt transferred supine to sit EOB with SBA. While sitting EOB requested for pt to taya B socks. Pt was able to taya L sock with SBA and R sock required Sinan. Sit to stand completed from bed level with CGA and use of w/w for UE support. Functional mobility completed to the bathroom with SBA and use of w/w. There she stood sink side while completing grooming task of washing her hands, face, and completing hair care with CGA for safety. While washing her face and vision was cut pt presented with F- standing balance due to being unsteady requiring Sinan to correct. Pt was educated to keep one hand on the sink however pt was unable to process command. Functional mobility completed back to the recliner with SBA and use of w/w. Challenged pt's activity tolerance needed for increased I and enhanced safety, pt was able to tolerate aprox 7 minutes before sitting due to fatigue. While sitting in the recliner pt completed BUE towel exercises with min resistance over all planes for 1 X 10 to increase and restore maximum functional strength. Pt was left sitting upright in the recliner with call light in hand, tray table in place, and body alarm activated for safety. Continue with rec D/C plan to SNF. NASIM Villanueva/Naveed
[2020-03-21 08:00] VITALS: BP 122/60
--- NOTE | 2020-03-21 08:06 | NUR ---
PHYSICAL THERAPY Patien presented to therapy in supine with head of bed nearly flat and bed alarm on. Patient reports no pain. Patient gives informed consent for treatment. Patient was identified by name and on wristband. Patient performed supine > sitting on EOB with SBA. Patient sat on EOB with SBA. Patient completed STS from EOB with SBA. Patient ambulated with Wh Walker and CGA - SBA for 50' x 4 with a standing rest break every 50 ft. with no LOB and no SOB. Patient performed STS from low chair with SBA. Patient performed seated LAQs, marches, heel/toe raises and hip abduction 2 x 10 reps each for strengthening the LEs in order to improve patient's functional mobility. Patient was left in bedside chair with call light within reach and chair alarm tested and attached to patient. Patient was 1:1 with this CERAMICS TECHNICIAN for 20 minutes total. TOM DUBON CERAMICS TECHNICIAN
--- NOTE | 2020-03-21 08:11 | NUR ---
OCCUPATIONAL THERAPY CO-SIGN I approve of the Occupational Therapy notes written above. ENDER POSADA, OTR/L
--- NOTE | 2020-03-21 08:12 | NUR ---
OT NOTE Nursing screen received. Patient is currently on OT caseload. Will continue with POC as able. Thank you. Irene Small, OTR/L
--- NOTE | 2020-03-21 09:00 | NUR ---
Patient resting quietly with no c/o discomfort. Respirations easy and regular. Vital signs stable. No overt distress. bed alarm on for safety. SHERRILL LEWIS
[2020-03-21 12:00] VITALS: BP 111/59
--- NOTE | 2020-03-21 12:54 | NUR ---
PHYSICAL THERAPY Nursing screen received and chart reviewed. Patient already on PT caseload. Will continue to follow. Thank you. Mona Pereyra,PT,DPT
[2020-03-21 16:00] VITALS: BP 90/44
--- NOTE | 2020-03-21 16:33 | NUR ---
PHYSICAL THERAPY CO-SIGN I approve of the Physical Therapy notes written above. MARCOS MOROCHO PT,DPT
[2020-03-21 20:00] VITALS: BP 104/49
--- NOTE | 2020-03-21 20:00 | NUR ---
IN TO SEE PATIENT. PATIENT RESTING IN BED. STATED THAT SHE BELIEVED THAT SHE WOULD BE ASLEEP BY NOW. PATIENT HAS NO COMPLAINTS. BED ALARM INTACT, WILL MONITOR
--- NOTE | 2020-03-21 22:07 | NUR ---
24 HR chart check completed.
[2020-03-22] VITALS: BP 111/49
--- NOTE | 2020-03-22 07:30 | NUR ---
TOOK OVER CARE OF PT. PT SLEEPING. RESPIRATIONS EASY/UNLABORED ON ROOM AIR. SAFETY MEASURES IN PLACE. CALL LIGHT IN REACH.
--- NOTE | 2020-03-22 07:54 | NUR ---
OT NOTE Pt was seen this A.M. 1:1 for 24 minute OT session. Upon arrival pt was supine in bed. Pt identified by name and and had no complaints at this time. Pt transferred supine to sit EOB with SBA. While sitting EOB pt donned B socks with SBA. Sit to stand completed from bed level with SBA and use of w/w for UE support. Functional mobility completed back to the bathroom with SBA and use of w/w. There she transferred on to standard commode with SBA. Clothing management completed with SBA and toilet hygiene completed with supervision while seated. She then stood sink side while washing her hands and completing hair care with SBA. Functional mobility back to the recliner with SBA and use of w/w. There she sat while completing BUE towel exercises over all planes for 1 X 10 with min resistance to increase UE strength. Pt was left sitting upright in the recliner with call light in hand, tray table in place, and body alarm activated for safety. Continue with rec D/C plan to SNF. NASIM Villanueva/Naveed
[2020-03-22 08:00] VITALS: BP 99/56
[2020-03-22 08:58] VITALS: BP 122/66
--- NOTE | 2020-03-22 09:00 | NUR ---
Discharge plan is for patient to go to [facility] for rehab. She needs one more night for Medicare. She can be discharged tomorrow 03/23 if medically stable. Marta Curran notified.
--- NOTE | 2020-03-22 10:23 | NUR ---
PHYSICAL THERAPY Patient presented to therapy in supine in bed with head of bed elevated and bed alarm on. Patient has no complaints. Patient gives informed consent for treatment. Patient was identified by name and on wristband. Patient has no spO2, no catheter and no IVs. Patient performed supine > sitting on EOB with SBA. Patient completed sitting on EOB with SBA. Patient completed STS from EOB CGA and verbal cues for hand placement. Patient ambulated with Wh Walker and CGA for 20' x 1 with Wh Walker no LOB during gait. Patient STS from low chair with CGA. Patient performed ambulation again with Wh Walker and CGA - SBA for 180' x 1 with no LOB. Patient had one instance of retrograde LOB when she first stood from low chair, which required MIN A X 1 to correct to upright position. Patient sat in bedside chair and completed 5 Xs STSs in 34.9 seconds total using UEs to push off the armrests of chair. Patient performed LAQs, marches and heel/toe raises 2 x 10 reps each for strengthening the LEs in order to improve patient's functional mobility. Patient was left in bedside chair with call light within reach, chair alarm tested and attached to patient and LEs in low position. Patient was 1:1 with this NOTE TAKER for 24 minutes total. TOM DUBON NOTE TAKER
[2020-03-22 12:00] VITALS: BP 103/57
--- NOTE | 2020-03-22 15:51 | NUR ---
OCCUPATIONAL THERAPY CO-SIGN I approve of the Occupational Therapy notes written above. ENDER POSADA, OTR/L
[2020-03-22 16:00] VITALS: BP 100/46
--- NOTE | 2020-03-22 17:23 | NUR ---
BISCODYL 5 MG PO GIVEN TO PT AT THIS TIME FOR NO BOWEL MOVEMENT X 4 DAYS. WILL CONTINUE TO MONITOR FOR EFFECTIVENESS OF MEDICATION.
--- NOTE | 2020-03-22 18:16 | NUR ---
PT SITTING UP IN BED IN ROOM, EATING DINNER. RESPIRATIONS EASY AND UNLABORED. NO S/S OF DISTRESS NOTED. CALL LIGHT IN REACH.
[2020-03-22 20:00] VITALS: BP 91/55
--- NOTE | 2020-03-22 20:30 | NUR ---
PATIENT SLEEPING IN BED. AROUSES EASILY. BREATHING IS EASY AND REGULAR. PATIENT DENIES ANY NEEDS AT THIS TIME. CALL LIGHT WITHIN REACH, BED ALARM INTACT. WILL MONITOR
[2020-03-23] VITALS: BP 98/54
--- NOTE | 2020-03-23 02:37 | NUR ---
PATIENT SLEEPING, NO DISTRESS NOTED. BED ALARM INTACT, WILL MONITOR
--- NOTE | 2020-03-23 07:35 | NUR ---
OT NOTE Pt was seen this A.M. 1:1 for 15 minute OT session. Upon arrival pt was supine in bed. Pt identified by name and and had no complaints at this time. Pt transferred supine to sit EOB with SBA. While sitting EOB pt donned R sock with Sinan due to being unable to bring leg to bed level this session and L sock with SBA while bringing leg up to bed level. Sit to stand completed from bed level with SBA and use of w/w for UE support. Functional mobility completed to the bathroom with SBA and use of w/w. There she transferred on/off standard commode with SBA and use of grab bar for UE support. Clothing management completed with CGA for safety. She then stood sink side while washing her hands and completing hair care with SBA. Throughout pt presented with F+ standing balance. Functional mobility completed back to the recliner with SBA and use of w/w. There she was left sitting upright with call light in hand, tray table in place, and body alarm activated for safety. Continue with rec D/C plan to SNF. NASIM Villanueva/Naveed
[2020-03-23 08:00] VITALS: BP 113/72
--- NOTE | 2020-03-23 10:10 | NUR ---
PHYSICAL THERAPY Patient presented to therapy in supine with head of bed nearly flat and bed alarm on. Patient has no complaints. Patient gives informed consent for treatment. Patient was identified by name and on wristband. Patient performed supine > sitting on EOB with SBA. Patient sat on EOB with SBA. Patient completed STS from EOB CGA. Patient ambulated with Wh Walker and CGA for 60' x 3 with NO LOB and NO SOB. Patient turned 180 degrees 2 seperate times with no LOB using Wh Walker. Patient sat in bedside chair with SBA. Patient STS from low chair with SBA - CGA. Patient was left in bedside chair with call light within reach, chair alarm tested and attached ot patient and LEs in low position. Patient was 1:1 with this PARTNER MARKETING MANAGER for 21 minutes total. TOM DUBON PARTNER MARKETING MANAGER
--- NOTE | 2020-03-23 10:59 | NUR ---
TEXTILE COLORIST FORMULATOR ATTEMPTED TO REACH RN STATION TO NO ANSWER. TEXTILE COLORIST FORMULATOR IS ASKING [facility] IF ANY TRANSPORTATION IS AVAILABLE FOR THIS PATIENT.
--- NOTE | 2020-03-23 11:38 | NUR ---
Pictures of wound taken per policy.
--- NOTE | 2020-03-23 11:51 | NUR ---
WOUND DISCHARGE PHOTOS TAKEN BY GAME TESTER.
--- NOTE | 2020-03-23 12:06 | NUR ---
HANDBAG OPERATOR NOTIFIED OF PATIENT DISCHARGE. HANDBAG OPERATOR SPOKE WITH SHAUNA MOORE. HANDBAG OPERATOR SPOKE WITH [facility] AND ARRANGED FOR A 2:30PM TRANSPORT. HANDBAG OPERATOR NOTFIED AYSE [place] AND PATIENTS JAMISONA-BALTA HAGAN OF PATIENT DISCHARGING/TRANSPORTATION BY [facility]. HANDBAG OPERATOR TO FAX DISCHARGE ORDERS TO [facility] FOR REVIEW.
--- NOTE | 2020-03-23 14:29 | NUR ---
OCCUPATIONAL THERAPY CO-SIGN I approve of the Occupational Therapy notes written above. ENDER POSADA, OTR/L
--- NOTE | 2020-03-23 14:30 | NUR ---
Discharge instructions reviewed with patient/family. Patient receptive and verbalizes understanding. Follow-up care arranged. Written instructions given to patient/family. BYRON SNEED
--- NOTE | 2020-03-23 14:31 | NUR ---
REPORT GIVEN TO [facility].
--- NOTE | 2020-03-23 14:40 | NUR ---
PHYSICAL THERAPY CO-SIGN I approve of the Physical Therapy notes written above. MARCOS MOROCHO PT,DPT
== END 2020-03-23 14:34 | disposition other institution (70) | DRG 884 ==
LOC: ED 11:49 → EDHOLD 14:08 → 5E 14:08
PROVIDERS: Internal Medicine; Physician Assistant; ADMIT Family Medicine; ATTEND Family Medicine
DX: R54 Age-related physical debility (principal); N17.0 Acute kidney failure with tubular necrosis; E43 Unspecified severe protein-calorie malnutrition; N18.4 Chronic kidney disease, stage 4 (severe); I12.9 Hypertensive chronic kidney disease with stage 1 through stage 4 chronic kidney disease, or unspecified chronic kidney disease; D53.9 Nutritional anemia, unspecified; R73.9 Hyperglycemia, unspecified; Z20.828 Contact with and (suspected) exposure to other viral communicable diseases; S00.81XA Abrasion of other part of head, initial encounter; M19.90 Unspecified osteoarthritis, unspecified site; E03.9 Hypothyroidism, unspecified; E83.41 Hypermagnesemia; E86.0 Dehydration; W18.39XA Other fall on same level, initial encounter; Y93.89 Activity, other specified; Y92.89 Other specified places as the place of occurrence of the external cause; Y99.8 Other external cause status; Z88.2 Allergy status to sulfonamides; Z88.8 Allergy status to other drugs, medicaments and biological substances; Z98.42 Cataract extraction status, left eye; Z98.41 Cataract extraction status, right eye; Z90.710 Acquired absence of both cervix and uterus; Z87.891 Personal history of nicotine dependence; Z95.0 Presence of cardiac pacemaker

== ENCOUNTER 2020-09-08 11:45 | Inpatient (IN) | payer MEDICARE ==
[~2020-09-08] VITALS: Ht 167.6 cm; Wt 76.8 kg
[2020-09-08] VITALS (8 sets, daily range): BP systolic 112–150; BP diastolic 51–64
[~2020-09-08 11:45] MED LIST changes: +CALCIUM + D3 E1 EACH PO; +CALCIUM/VITAMIN D3 PO; +CITRACAL + D E1 EACH PO; +DONEPEZIL HCL10 MG PO; +FAMOTIDINE20 M1 PO; +METHYLCOBALAMIN PO; +MULTIVITAMINS1 EAC5 PO; +PRESERVISION A1 EAC1 PO; +PROVENTIL HFA6.7 GM INH
[2020-09-08 12:08] LABS: BASO % 0.3 % (0.0-1.0); EOS # 0.2 10*3/uL (0.0-0.4); EOS % 2.6 % (1.0-4.0); HEMATOCRIT 32.4 % (37.0-47.0); LYMPH # 1.7 10*3/uL (1.3-4.4); LYMPH % 23.6 % (27.0-41.0); MEAN CELL VOLUME 103.2 fl (81.0-99.0); MEAN CORPUSCULAR HGB 34.1 pg (27.0-31.0); MEAN PLATELET VOLUME 11.5 fl (9.6-12.3); MONO # 0.8 10*3/uL (0.1-1.0); MONO % 11.2 % (3.0-9.0); NEUT # 4.4 10*3/uL (2.3-7.9); NEUT % 61.9 % (47.0-73.0); PLATELET COUNT AUTOMATED 228 10*3/uL (130-400); RED BLOOD COUNT 3.14 10*6/uL (4.10-5.10); RED CELL DISTRI WIDTH 14.9 % (0-14.5); WHITE BLOOD COUNT 7.2 10*3/uL (4.8-10.8)
[2020-09-08 12:52] LABS: ALBUMIN 2.7 gm/dl (3.1-4.5); ALKALINE PHOSPHATASE 95 U/L (45-117); BUN 39 mg/dl (7-24); CHLORIDE 111 mmol/L (98-107); CREATININE 2.07 mg/dL (0.55-1.02); POTASSIUM 5.1 mmol/L (3.5-5.1); SGOT/AST 23 IU/L (3-35); SGPT/ALT 26 U/L (12-78); SODIUM 140 mmol/L (136-145); TOTAL PROTEIN 6.8 gm/dL (6.4-8.2)
[2020-09-08 12:58] LABS: TROPONIN I < 0.015 ng/ml (<0.045)
[2020-09-09] VITALS (8 sets, daily range): BP systolic 123–154; BP diastolic 44–78
[2020-09-09] MEDS ORDERED: LEVOTHYROXINE150 MCG PO (02:57)
[2020-09-09] MEDS ORDERED: FUROSEMIDE20 M1 PO (03:01)
[2020-09-09 05:18] LABS: ALBUMIN 2.5 gm/dl (3.1-4.5); CREATININE 2.1 mg/dL (0.55-1.02); TOTAL PROTEIN 5.8 gm/dL (6.4-8.2)
[2020-09-09 05:24] LABS: THYROID STIM HORMONE (HS) 2.56 uIU/ml (0.358-4.75)
[2020-09-09 06:10] LABS: BASO % 0.5 % (0.0-1.0); EOS # 0.2 10*3/uL (0.0-0.4); EOS % 2.7 % (1.0-4.0); HEMATOCRIT 29.4 % (37.0-47.0); LYMPH # 2.1 10*3/uL (1.3-4.4); LYMPH % 25.5 % (27.0-41.0); MEAN CELL VOLUME 103.9 fl (81.0-99.0); MEAN CORPUSCULAR HGB 33.6 pg (27.0-31.0); MEAN CORPUSCULAR HGB CONC 32.3 g/dl (33.0-37.0); MEAN PLATELET VOLUME 11.4 fl (9.6-12.3); MONO # 0.9 10*3/uL (0.1-1.0); MONO % 11.4 % (3.0-9.0); NEUT # 4.9 10*3/uL (2.3-7.9); NEUT % 59.4 % (47.0-73.0); PLATELET COUNT AUTOMATED 200 10*3/uL (130-400); RED BLOOD COUNT 2.83 10*6/uL (4.10-5.10); RED CELL DISTRI WIDTH 14.7 % (0-14.5); WHITE BLOOD COUNT 8.2 10*3/uL (4.8-10.8)
[2020-09-09 07:52] LABS: VITAMIN D, 25-HYDROXY 82.8 ng/mL (30-100)
[2020-09-09] MEDS ORDERED: B12 ACTIVE1000 MCG PO (16:04)
[2020-09-10] VITALS: BP 148/59
[2020-09-10 06:23] LABS: CREATININE 1.86 mg/dL (0.55-1.02)
[2020-09-10 06:47] LABS: BASO % 0.6 % (0.0-1.0); EOS # 0.3 10*3/uL (0.0-0.4); EOS % 4.3 % (1.0-4.0); HEMATOCRIT 30.6 % (37.0-47.0); LYMPH # 2.2 10*3/uL (1.3-4.4); LYMPH % 31.5 % (27.0-41.0); MEAN CORPUSCULAR HGB 33.3 pg (27.0-31.0); MEAN CORPUSCULAR HGB CONC 32.7 g/dl (33.0-37.0); MEAN PLATELET VOLUME 11.4 fl (9.6-12.3); MONO # 0.8 10*3/uL (0.1-1.0); NEUT # 3.6 10*3/uL (2.3-7.9); NEUT % 51.3 % (47.0-73.0); PLATELET COUNT AUTOMATED 217 10*3/uL (130-400); WHITE BLOOD COUNT 6.9 10*3/uL (4.8-10.8)
[2020-09-10 08:00] VITALS: BP 152/78
[2020-09-10 12:00] VITALS: BP 150/72
[2020-09-10 16:10] VITALS: BP 143/66
== END 2020-09-10 18:06 | DRG 313 ==
LOC: ED 11:45 → EDHOLD 14:01 → 5E 14:01
PROVIDERS: Internal Medicine; Student in an Organized Health Care Education/Training Program; ADMIT Family Medicine; ATTEND Family Medicine
DX: R07.89 Other chest pain (principal); E43 Unspecified severe protein-calorie malnutrition; N18.4 Chronic kidney disease, stage 4 (severe); E83.41 Hypermagnesemia; E87.8 Other disorders of electrolyte and fluid balance, not elsewhere classified; M19.90 Unspecified osteoarthritis, unspecified site; E03.9 Hypothyroidism, unspecified; I12.9 Hypertensive chronic kidney disease with stage 1 through stage 4 chronic kidney disease, or unspecified chronic kidney disease; D53.9 Nutritional anemia, unspecified; R73.9 Hyperglycemia, unspecified; Z66 Do not resuscitate; Z88.2 Allergy status to sulfonamides; Z88.8 Allergy status to other drugs, medicaments and biological substances; Z90.710 Acquired absence of both cervix and uterus; Z98.42 Cataract extraction status, left eye; Z98.41 Cataract extraction status, right eye; Z87.891 Personal history of nicotine dependence; Z79.82 Long term (current) use of aspirin; Z79.899 Other long term (current) drug therapy; Z68.27 Body mass index [BMI] 27.0-27.9, adult

== ENCOUNTER 2021-03-22 11:13 | Emergency (ER) | payer MEDICARE ==
[~2021-03-22] VITALS: Wt 85.3 kg
[~2021-03-22 11:13] MED LIST changes: +B12 ACTIVE1000 MCG PO; +FUROSEMIDE20 M1 PO; +LEVOTHYROXINE150 MCG PO
[2021-03-22 11:25] LABS: BASO % 0.4 % (0.0-1.0); EOS # 0.1 10*3/uL (0.0-0.4); EOS % 1.7 % (1.0-4.0); HEMATOCRIT 34.6 % (37.0-47.0); LYMPH # 1.6 10*3/uL (1.3-4.4); LYMPH % 19.5 % (27.0-41.0); MEAN CELL VOLUME 104.5 fl (81.0-99.0); MEAN CORPUSCULAR HGB 33.8 pg (27.0-31.0); MEAN CORPUSCULAR HGB CONC 32.4 g/dl (33.0-37.0); MEAN PLATELET VOLUME 10.9 fl (9.6-12.3); MONO # 0.8 10*3/uL (0.1-1.0); MONO % 10.1 % (3.0-9.0); NEUT # 5.6 10*3/uL (2.3-7.9); NEUT % 67.8 % (47.0-73.0); PLATELET COUNT AUTOMATED 200 10*3/uL (130-400); RED BLOOD COUNT 3.31 10*6/uL (4.10-5.10); RED CELL DISTRI WIDTH 14.6 % (0-14.5); WHITE BLOOD COUNT 8.2 10*3/uL (4.8-10.8)
[2021-03-22 11:35] LABS: ACT PARTIAL THROMBO TIME 25.5 SECONDS (20.0-32.1)
[2021-03-22 11:40] LABS: ALBUMIN 2.8 gm/dl (3.1-4.5); CREATININE 2.3 mg/dL (0.55-1.02); POTASSIUM 5.1 mmol/L (3.5-5.1)
[2021-03-22 14:30] VITALS: BP 108/63
== END 2021-03-22 16:27 ==
LOC: ED 11:13
PROVIDERS: Student in an Organized Health Care Education/Training Program
DX: R55 Syncope and collapse (principal)

== ENCOUNTER 2021-04-28 07:44 | Emergency (ER) | payer MEDICARE ==
[2021-04-28 07:49] VITALS: BP 154/67
== END 2021-04-28 09:10 ==
LOC: ED 07:44
DX: R51.9 Headache, unspecified (principal); I12.9 Hypertensive chronic kidney disease with stage 1 through stage 4 chronic kidney disease, or unspecified chronic kidney disease; N18.4 Chronic kidney disease, stage 4 (severe); F03.90 Unspecified dementia, unspecified severity, without behavioral disturbance, psychotic disturbance, mood disturbance, and anxiety; Z88.2 Allergy status to sulfonamides; Z79.899 Other long term (current) drug therapy; Z79.82 Long term (current) use of aspirin; M19.90 Unspecified osteoarthritis, unspecified site; E03.9 Hypothyroidism, unspecified; E43 Unspecified severe protein-calorie malnutrition; Z95.0 Presence of cardiac pacemaker; Z90.710 Acquired absence of both cervix and uterus; Z98.1 Arthrodesis status; W19.XXXA Unspecified fall, initial encounter; Y93.89 Activity, other specified; Y92.128 Other place in nursing home as the place of occurrence of the external cause; Y99.8 Other external cause status

== ENCOUNTER 2021-05-18 05:10 | Emergency (ER) | payer MEDICARE ==
[~2021-05-18] VITALS: Ht 154.9 cm; Wt 76.4 kg
[2021-05-18 05:12] VITALS: BP 161/68
== END 2021-05-18 07:35 | disposition home or self-care (01) ==
LOC: ED 05:10
DX: S01.01XA Laceration without foreign body of scalp, initial encounter (principal); M19.90 Unspecified osteoarthritis, unspecified site; E03.9 Hypothyroidism, unspecified; I12.9 Hypertensive chronic kidney disease with stage 1 through stage 4 chronic kidney disease, or unspecified chronic kidney disease; N18.4 Chronic kidney disease, stage 4 (severe); Z88.2 Allergy status to sulfonamides; Z88.1 Allergy status to other antibiotic agents; Z79.899 Other long term (current) drug therapy; Z79.82 Long term (current) use of aspirin; Z90.710 Acquired absence of both cervix and uterus; Z98.890 Other specified postprocedural states; Z87.891 Personal history of nicotine dependence; Z98.51 Tubal ligation status; W18.39XA Other fall on same level, initial encounter; Y93.89 Activity, other specified; Y92.89 Other specified places as the place of occurrence of the external cause; Y99.8 Other external cause status

== ENCOUNTER 2021-08-09 21:20 | Emergency (ER) | payer MEDICARE ==
[~2021-08-09] VITALS: Wt 84.8 kg
[2021-08-10 00:26] VITALS: BP 164/62
== END 2021-08-10 01:33 ==
LOC: ED 21:20
DX: S09.90XA Unspecified injury of head, initial encounter (principal); Z88.2 Allergy status to sulfonamides; Z79.899 Other long term (current) drug therapy; Z79.82 Long term (current) use of aspirin; Z90.710 Acquired absence of both cervix and uterus; Z98.890 Other specified postprocedural states; Z98.51 Tubal ligation status; Z87.891 Personal history of nicotine dependence; W18.39XA Other fall on same level, initial encounter; Y93.89 Activity, other specified; Y92.89 Other specified places as the place of occurrence of the external cause; Y99.8 Other external cause status

== ENCOUNTER 2021-09-12 08:34 | Emergency (ER) | payer MEDICARE ==
[2021-09-12 08:34] VITALS: BP 154/61
[2021-09-12 09:12] LABS: BASO % 0.4 % (0.0-1.0); EOS # 0.2 10*3/uL (0.0-0.4); EOS % 1.8 % (1.0-4.0); HEMATOCRIT 31.8 % (37.0-47.0); LYMPH # 1.4 10*3/uL (1.3-4.4); LYMPH % 16.5 % (27.0-41.0); MEAN CELL VOLUME 101.9 fl (81.0-99.0); MEAN CORPUSCULAR HGB 33.3 pg (27.0-31.0); MEAN CORPUSCULAR HGB CONC 32.7 g/dl (33.0-37.0); MEAN PLATELET VOLUME 10.9 fl (9.6-12.3); MONO # 0.8 10*3/uL (0.1-1.0); MONO % 9.7 % (3.0-9.0); NEUT # 5.9 10*3/uL (2.3-7.9); NEUT % 71.2 % (47.0-73.0); PLATELET COUNT AUTOMATED 204 10*3/uL (130-400); RED BLOOD COUNT 3.12 10*6/uL (4.10-5.10); WHITE BLOOD COUNT 8.2 10*3/uL (4.8-10.8)
[2021-09-12 09:24] LABS: ACT PARTIAL THROMBO TIME 26.3 SECONDS (20.0-32.1)
[2021-09-12 09:32] LABS: CREATININE 1.91 mg/dL (0.55-1.02); POTASSIUM 4.5 mmol/L (3.5-5.1); TOTAL PROTEIN 6.2 gm/dL (6.4-8.2)
[2021-09-12 10:29] LABS: BILIRUBIN Negative (Negative); BLOOD Negative (Negative); CLARITY Clear (Clear); COLOR Yellow (Yellow); GLUCOSE Negative (Negative); KETONE Negative (Negative); LEUKO ESTERASE 2+ (Negative); NITRITE Negative (Negative); SPECIFIC GRAVITY <= 1.005 (1.001-1.030); UROBILINOGEN 0.2 E.U./dl (0.0-1.0)
[2021-09-12 11:05] LABS: BACTERIA 3+; EPITHELIAL CELLS 0-2
[2021-09-12] MEDS ORDERED: CEFUROXIME AXE500 MG PO (12:13)
== END 2021-09-12 13:05 ==
LOC: ED 08:34
PROVIDERS: Family Medicine
DX: S01.112A Laceration without foreign body of left eyelid and periocular area, initial encounter (principal); Z88.1 Allergy status to other antibiotic agents; Z79.899 Other long term (current) drug therapy; Z79.82 Long term (current) use of aspirin; Z88.2 Allergy status to sulfonamides; Z90.710 Acquired absence of both cervix and uterus; Z87.891 Personal history of nicotine dependence; W18.39XA Other fall on same level, initial encounter; Y93.89 Activity, other specified; Y92.89 Other specified places as the place of occurrence of the external cause; Y99.8 Other external cause status

== ENCOUNTER 2022-01-03 01:24 | Emergency (ER) | payer MEDICARE ==
[~2022-01-03] VITALS: Wt 75.7 kg
[~2022-01-03 01:24] MED LIST changes: +CEFUROXIME AXE500 MG PO
[2022-01-03 01:33] VITALS: BP 146/54
== END 2022-01-03 02:53 ==
LOC: ED 01:24
DX: S42.211A Unspecified displaced fracture of surgical neck of right humerus, initial encounter for closed fracture (principal); Z88.2 Allergy status to sulfonamides; Z88.1 Allergy status to other antibiotic agents; Z79.899 Other long term (current) drug therapy; Z79.82 Long term (current) use of aspirin; Z98.890 Other specified postprocedural states; Z90.710 Acquired absence of both cervix and uterus; Z87.891 Personal history of nicotine dependence; W18.39XA Other fall on same level, initial encounter; Y93.89 Activity, other specified; Y92.89 Other specified places as the place of occurrence of the external cause; Y99.8 Other external cause status

== ENCOUNTER → 2022-01-27 | Outpatient (CLI) | payer MEDICARE | END | disposition home or self-care (01) | LOC: ORTHO 10:42 | PROVIDERS: ATTEND Orthopaedic Surgery | DX: S42.222D 2-part displaced fracture of surgical neck of left humerus, subsequent encounter for fracture with routine healing (principal); X58.XXXD Exposure to other specified factors, subsequent encounter ==

== ENCOUNTER → 2022-02-26 | Outpatient (CLI) | payer MEDICARE ==
[~2022-02-26] MED LIST changes: +B-121000 MCG PO; +CARVEDILOL12.5 MG PO; +LEVOTHYROXINE175 MCG PO; +NYAMYC15 GM T; +Synthroid,Lev200 MCG PO; +TYLENOL325 M1 PO; +VITAMIN B-1250 MCG PO
== END | disposition home or self-care (01) ==
LOC: ORTHO 00:23
PROVIDERS: ATTEND Orthopaedic Surgery
DX: S42.222D 2-part displaced fracture of surgical neck of left humerus, subsequent encounter for fracture with routine healing (principal); X58.XXXD Exposure to other specified factors, subsequent encounter